=== PATIENT | male | born 1955 | race Caucasian/White ===

== ENCOUNTER 2016-12-07 22:56 | Inpatient (IN) ==
[2016-12-08] MEDS ORDERED: Naloxone 0.4 MG/ML INJ IVP PRN (01:35)
[2016-12-08] MEDS ORDERED: Ondansetron 4 MG/2 ML VIAL IVP PRN (01:35)
--- NOTE | 2016-12-08 01:45 | Internal Med History&Physical ---
Date of Encounter: 12/08/16 Time of Encounter: 01:05 Assessment and Plan (1) Acute pancreatitis Current visit: No Status: Acute 1. npo. 2. IVF hydration, IV pain medications, IV anti-emetics. 3. Will order GB ultrasound and repeat LFT's. 4. Given leukocytosis, will draw blood cultures and start IV antibiotics to cover GI joe. 5. Check lipid profile. 6. Likely due to gallstones. Will likely need surgical consult for cholecystectomy after acute pancreatitis resolves. Qualifiers: Pancreatitis type: biliary Acute pancreatitis complication: no infection or necrosis Qualified Code(s): K85.10 - Biliary acute pancreatitis without necrosis or infection (2) Cholelithiases Current visit: No Status: Acute 1. Will need surgery (cholecystectomy) once pancreatitis resolves. Qualifiers: Cholelithiasis location: gallbladder Cholecystitis acuity: unspecified acuity Biliary obstruction: without biliary obstruction Qualified Code(s): K80.00 - Calculus of gallbladder with acute cholecystitis without obstruction (3) DVT prophylaxis Current visit: Yes Status: Acute 1. Heparin SQ. Internal Medicine - H&P: HPI Chief complaint: pancreatitis Admitted From: Hospital to Hospital Transfer Plans for Post Hospital Care: Home History of present illness: Mr. Bullard is a 61 year old male who presents in transfer from [facility] emergency department. He was diagnosed with pancreatitis there and gallstones. He was therefore transferred to [place] for further evaluation and care. Upon my assessment of the patient, I can obtain no history due to his severe MRDD and noncommunicative state. He appears to be garding his epigastrium somewhat, but I can elicit no information from him whatsoever. I called his snf where he resides and spoke with one of his nurses. He informed me that the patient had been doing well until earlier today when he did not eat his lunch or dinner. The nurse also informed me that he was guarding and rubbing his epigastrium. Because of the symptoms, he was sent to the ER for evaluation where he was diagnosed with pancreatitis. No further history could be obtained about the present illness. I reviewed the ER records from [facility] and the records from his sn[facility] and my phone discussion with the nurse as well. Past Med Surg Social Fam HX - Past Medical History Source: old records reviewed, nursing notes reviewed Medical history: GERD, hypertension, other (severe MRDD) Psychiatric history: anxiety, depression - Past Surgical History Surgical History: no surgical history - Social History Smoking Status: Never smoker Smokeless Tobacco Status: No Alcohol use: none Drug use: none Current living situation: Prison - Family History Mother History Unknown: Yes Father History Unknown: Yes Internal Medicine - H&P: Meds Loratadine [Claritin] 10 mg PO DAILY PRN 12/07/16 [History] Omeprazole 20 mg PO Q48H 12/07/16 [History] Paroxetine HCl [Paxil] 30 mg PO DAILY 12/07/16 [History] Quetiapine Fumarate [Seroquel] 300 mg PO HS 12/07/16 [History] Calcium Carbonate/Vitamin D3 [Oyster Shell 250 mg + Vit D Tb] 1 each PO BID [History] Melatonin 10 mg PO HS 12/08/16 [History] Saline Nasal [place] [[place] Nasal [place]] 2 spray NS DAILY 12/08/16 [History] Allergies No Known Allergies Allergy (Verified 12/07/16 18:37) ROS unobtainable: due to mental status - Constitutional Vitals: Temp Pulse Resp BP Pulse Ox 100 F H 89 18 127/71 92 12/08/16 00:31 12/08/16 00:31 12/08/16 00:31 12/08/16 00:31 12/08/16 00:31 General appearance: Present: A&O X 0, mild distress. Absent: answers questions appropriately Exam: anxious and tearful at times--not communicative - Head Head exam: Present: atraumatic, normal inspection - Expanded Head Exam Head exam expanded: Absent: abrasion, contusion, general tenderness - Eye Eye exam: Present: EOMI, normal appearance, PERRL. Absent: scleral icterus Pupils: Present: normal accommodation - ENT ENT exam: Present: mucous membranes dry, normal exam, normal oropharynx - Neck Neck exam general surgery: Present: supple. Absent: lymphadenopathy, tenderness , thyromegaly - Respiratory Respiratory exam: Present: CTAB. Absent: chest wall tenderness, rales, respiratory distress, rhonchi, wheezes - Cardiovascular Cardiovascular exam: Present: RRR, +S1, +S2. Absent: diastolic murmur, systolic murmur - GI/Abdominal GI/Abdominal exam: Present: guarding (epigastrium), normal bowel sounds, soft, tenderness (epigastrium), no peritoneal signs. Absent: hepatomegaly, rebound, splenomegaly - Extremities Exam Extremities exam: Present: full ROM, warm, radial pulses palpable and symetrical. Absent: calf tenderness, joint swelling, pedal edema - Back Exam Back exam: Present: normal inspection. Absent: CVA tenderness (L), CVA tenderness (R) - Neurological Exam Neurological exam: Present: no focal deficits Additional comments: difficult to assess -- will not cooperate; he moves all four extremities and shows no gross deficits - Psychiatric Psychiatric exam: Present: anxious - Skin Skin exam: Present: dry, warm. Absent: rash Internal Med - H&P Results - Labs Labs: I reviewed his labs from [facility] and include the following: WBC 16.3 Hemoglobin 14.0 Hematocrit 41.1 Platelet count 312 Segmented neutrophils 83% Lymphocytes 6.6% Monocytes 8.3% Sodium 137 Potassium 4.3 Chloride 100 Carbon dioxide 28 BUN 15 Creatinine 0.88 Total bilirubin 3.5 AST 106 ALT 219 Alkaline phosphatase 373 Lipase 1328 - Diagnostic Studies CT scan - abdomen Additional comments: Ct report reviewed: uncomplicated pancreatitis
[2016-12-08] MEDS: Pantoprazole 40 MG VIAL IVP SCH ×3 (02:20→19:56)
[2016-12-08 02:32] LABS: Basophils # 0.1 K/mcL (0.0-0.2); Basophils % 0.3 %; Eosinophils # 0.2 K/mcL (0.0-0.6); Eosinophils % 0.8 %; Hematocrit 41.2 % (37.5-50.1); Hemoglobin 13.8 g/dL (12.9-16.9); Immature Granulocytes % 1.6 % (0-4); Lymphocytes # 1.1 K/mcL (0.6-4.6); Lymphocytes % 5.9 %; Mean Corpuscular HGB Conc 33.5 g/dL (31.6-35.5); Mean Corpuscular Hemoglobin 27.9 pg (28.0-33.3); Mean Corpuscular Volume 83.4 fL (83.0-100.0); Mean Platelet Volume 9.8 fL (9.4-12.4); Monocytes # 1.4 K/mcL (0.0-1.3); Monocytes % 7.4 %; Platelet Count 333 K/mcL (140-400); Red Blood Count 4.94 M/mcL (4.19-5.50); Red Cell Distribution Width 13.5 % (11.5-14.5)
[2016-12-08 02:39] LABS: INR 1.4; Prothrombin Time 15.6 Seconds (9.4-12.1)
[2016-12-08 02:42] LABS: Activated Partial Thrombo Time 36.1 Seconds (26.0-36.0)
[2016-12-08 02:46] LABS: Bilirubin,Direct 1.6 mg/dL (0.0-0.5); Bilirubin,Indirect 0.8 mg/dL (0.0-1.2); Bilirubin,Total 2.4 mg/dL (0.2-1.2)
[2016-12-08 02:48] LABS: Amylase 346 Units/L (25-125); Lipase 782 Units/L (8-78)
[2016-12-08 02:49] LABS: Alanine Aminotransferase 195 Units/L (0-55); Albumin 3.2 g/dL (3.5-5.0); Albumin/Globulin Ratio 0.8 (1.1-2.2); Alkaline Phosphatase 355 Units/L (38-126); Aspartate Amino Transferase 82 Units/L (5-34); BUN/Creatinine Ratio 15 (6-26); Bilirubin,Total 2.5 mg/dL (0.2-1.2); Blood Urea Nitrogen 12 mg/dL (8-26); Carbon Dioxide 24 mEq/L (19-29); Chloride 103 mEq/L (98-109); Chol/HDL Ratio 2.2 (0-4.9); Cholesterol 119 mg/dL (< 200); Glucose 86 mg/dL (70-99); HDL Cholesterol 53 mg/dL (40-59); LDL Cholesterol,Calculated 54 mg/dL (0-99); Magnesium 2.2 mg/dL (1.6-2.6); Osmolality,Calculated 283 (280-300); Potassium 3.6 mEq/L (3.5-4.5); Sodium 137 mEq/L (136-145); Total Protein 7.2 g/dL (6.0-8.3); Triglycerides 61 mg/dL (< 150); eGFR For African Americans > 60 (> 60); eGFR For Non-African Americans > 60 (> 60)
[2016-12-08] MEDS: *HR* Heparin 5,000 UNIT/ML VIAL SQ SCH ×2 (05:30→16:43)
[2016-12-08] MEDS: 0.9 % Sodium Chloride 1,000 ML IVC SCH ×4 (06:24→20:00)
[2016-12-08] MEDS: MetroNIDAZOLE 500 MG/100 ML 500 MG/100 ML BAG IVPB SCH ×2 (09:25→16:44)
[2016-12-08] MEDS: Piperacillin/Tazobactam 3.375 GM in D5% in Water (Mini-Bag+) 100 ML IVPB SCH ×2 (09:25→16:46)
[2016-12-08] MEDS: *HR* Morphine 2 MG/ML SYRINGE IVP PRN ×3 (09:32→19:57)
--- NOTE | 2016-12-08 14:56 | General Surgery Consult Note ---
<Acacia Chavez - Last Filed: 12/08/16 15:38> Date of Encounter: 12/08/16 Time of Encounter: 14:54 Assessment and Plan (1) Gallstone pancreatitis Current Visit: Yes Status: Acute Per reports reviewed and patient family the patient had sudden onset of acute abdominal pain with refusal to eat at his [facility] where he was exhibiting abdominal guarding and tenderness. He was evaluated at [place] ED and diagnosed with pancreatitis and gallstones. He was transferred here for further evaluation and care. Unable to obtain history or review of systems from patient due to MRDD. On physical exam, patient is noncommunicative, active bowel sounds, abdominal tenderness to palpation epigastrium and right upper quadrant with guarding and wincing and withdrawal to pain. Afebrile. Vitals stable. Imaging: -Ultrasound of right upper quadrant on 12/08/16 demonstrates cholelithiasis without evidence of acute cholecystitis. -CT scan of the abdomen and pelvis without IV contrast on 12/07/16 obtained at ED [place] demonstrated acute uncomplicated pancreatitis without free air or fluid collection. Mild reactive duodenitis and large hiatal hernia without bowel obstruction. Multiple gallstones within the gallbladder are noted without wall thickening or cherie-cholecystic inflammatory changes. Labs: WBCs elevated at 19 with left shift; neutrophil count of 16 Elevated direct and total bilirubin; direct 1.6, total 2.4 Elevated LFTs; AST 82, ALT 195, alkaline phosphatase 355 Elevated amylase and lipase; amylase 346, lipase 742 Plan: Nothing by mouth Supportive care. Goal of initial treatment to prevent complications of severe pancreatitis, reduce pancreatic stimuli, correct fluid/electrolyte abnormalities. -IV fluids -IV Pain control -IV Antiemetics Continue to monitor closely over next 48 to 72 hours. -I/O's -Vitals -Electrolytes including Calcium/iCa -serum glucose Risks, benefits, alternatives, expected outcomes will be reviewed with the patient and caregiver for agreement to proceed to the operating room with Dr. Rae for Interval laproscopic cholecystectomy in the next 48 to 72 hours to allow for resolution of acute pancreatitis prior to procedure. History of Present Illness Consult date: 12/08/16 Reason for consult: gallstones Requesting physician: Daniel Winkler History of present illness: Mr. Bullard is a 61-year-old male with a past medical history of MRDD currently living in a penitentiary who was transferred from [facility] emergency department, where he was diagnosed with acute pancreatitis and cholelithiasis to [facility] for further evaluation and care. Per records reviewed, patient was sent to the ER for evaluation as he was refusing to eat his lunch or dinner and was reportedly guarding his epigastric region. CT scan of the abdomen and pelvis without IV contrast demonstrated acute uncomplicated pancreatitis without free air or fluid collection. Mild reactive duodenitis and large hiatal hernia without bowel obstruction. Multiple gallstones within the gallbladder are noted without wall thickening or cherie- cholecystic inflammatory changes. Laboratory results reveal leukocytosis with white cell count of 19 and a left shift with neutrophil count of 16, elevated: LFTs, alkaline phosphatase, direct and total bilirubin, as well as elevated amylase and lipase. Patient is uncommunicative on exam, however, his brother related that the patients step father is the legal caregiver as his mother had a stroke and his biological father . Patient has 3 brothers. Past Med Surg Social Fam HX - Past Medical History Medical history: GERD, hypertension, other (severe MRDD) Psychiatric history: anxiety, depression - Past Surgical History Surgical History: no surgical history - Social History Smoking Status: Never smoker Smokeless Tobacco Status: No Alcohol use: none Drug use: none - Family History Mother History Unknown: Yes Father History Unknown: Yes Medications and Allergies Loratadine [Claritin] 10 mg PO DAILY PRN 12/07/16 [History] Omeprazole 20 mg PO Q48H 12/07/16 [History] Paroxetine HCl [Paxil] 30 mg PO DAILY 12/07/16 [History] Quetiapine Fumarate [Seroquel] 300 mg PO HS 12/07/16 [History] Acetaminophen [Tylenol] 650 mg PO Q4H PRN 12/08/16 [History] Calcium Carbonate/Vitamin D3 [Oyster Shell 250 mg + Vit D Tb] 1 each PO BID [History] Fluticasone Propionate Nasal [Flonase] 2 spr NS DAILY PRN 12/08/16 [History] Ibuprofen [Motrin] 400 mg PO Q4HR PRN 12/08/16 [History] Loperamide HCl [Anti-Diarrheal] 2 mg PO Q4H PRN MDD 4 TABLETS 12/08/16 [History] MOM Conc [Milk of Magnesia Conc] 30 ml PO AD PRN 12/08/16 [History] Melatonin 10 mg PO HS 12/08/16 [History] Saline Nasal [place] [[place] Nasal [place]] 2 spray NS DAILY 12/08/16 [History] Allergies No Known Allergies Allergy (Verified 12/08/16 13:15) Review of Systems All systems PM: A 10-system review of systems was performed and is negative for pertinent findings except as documented above in the HPI. General Surgery Exam Initial Vital Signs Temp Pulse Resp BP Pulse Ox 100 F H 89 18 127/71 92 12/08/16 00:31 12/08/16 00:31 12/08/16 00:31 12/08/16 00:31 12/08/16 00:31 - General physical appearance moderate distress, obese, other (Unable to answer questions. ). negative: jaundice - Eyes PERRL, normal ocular movement. negative: icteric - ENT dry mucosa - Neck trachea midline, no venous distension - Respiratory normal expansion, normal respiratory effort, clear to auscultation - Cardiovascular Cardiovascular exam: Present: RRR, no murmurs/rubs/gallops - Abdomen Abdomen general surgery: Present: bowel sounds present, soft, guarding. Absent : distended, rebound, rigid Abdominal Tenderness: Present: epigastic, RUQ - Integumentary Integumentary general surgery: Present: warm and dry - Neurologic Present: other (A&O x 0) - Psychiatric Psychiatric general surgery: Present: tearful. Absent: oriented to person, oriented to place, oriented to time, speech is normal Exam Initial Vital Signs Temp Pulse Resp BP Pulse Ox 100 F H 89 18 127/71 92 12/08/16 00:31 12/08/16 00:31 12/08/16 00:31 12/08/16 00:31 12/08/16 00:31 Results - Labs 12/08/16 02:02 12/08/16 02:02 Abnormal lab results WBC 19.0 K/mcL (4.3-11.1) H 12/08/16 02:02 MCH 27.9 pg (28.0-33.3) L 12/08/16 02:02 Neutrophils # 16.0 K/mcL (1.6-8.9) H 12/08/16 02:02 Monocytes # 1.4 K/mcL (0.0-1.3) H 12/08/16 02:02 PT 15.6 Seconds (9.4-12.1) H 12/08/16 02:02 APTT 36.1 Seconds (26.0-36.0) H 12/08/16 02:02 Total Bilirubin 2.4 mg/dL (0.2-1.2) H 12/08/16 02:13 Direct Bilirubin 1.6 mg/dL (0.0-0.5) H 12/08/16 02:13 AST 82 Units/L (5-34) H 12/08/16 02:02 ALT 195 Units/L (0-55) H 12/08/16 02:02 Alkaline Phosphatase 355 Units/L (38-126) H 12/08/16 02:02 Albumin 3.2 g/dL (3.5-5.0) L 12/08/16 02:02 Globulin 4.0 g/dL (2.4-3.5) H 12/08/16 02:02 Albumin/Globulin Ratio 0.8 (1.1-2.2) L 12/08/16 02:02 Amylase 346 Units/L (25-125) H 12/08/16 02:02 Lipase 782 Units/L (8-78) H 12/08/16 02:02 Diabetes panel 12/08/16 Range/Units 02:02 Sodium 137 (136-145) mEq/L Potassium 3.6 (3.5-4.5) mEq/L Chloride 103 (98-109) mEq/L Carbon Dioxide 24 (19-29) mEq/L BUN 12 (8-26) mg/dL Creatinine 0.80 (0.72-1.25) mg/dL Glucose 86 (70-99) mg/dL Calcium 9.0 (8.6-10.8) mg/dL AST 82 H (5-34) Units/L ALT 195 H (0-55) Units/L Alkaline Phosphatase 355 H (38-126) Units/L Albumin 3.2 L (3.5-5.0) g/dL Triglycerides 61 (< 150) mg/dL HDL Cholesterol 53 (40-59) mg/dL Calcium panel 12/08/16 Range/Units 02:02 Calcium 9.0 (8.6-10.8) mg/dL Albumin 3.2 L (3.5-5.0) g/dL Pituitary panel 12/08/16 Range/Units 02:02 Sodium 137 (136-145) mEq/L Potassium 3.6 (3.5-4.5) mEq/L Chloride 103 (98-109) mEq/L Carbon Dioxide 24 (19-29) mEq/L BUN 12 (8-26) mg/dL Creatinine 0.80 (0.72-1.25) mg/dL Glucose 86 (70-99) mg/dL Calcium 9.0 (8.6-10.8) mg/dL Adrenal panel 12/08/16 12/08/16 Range/Units 02:02 02:13 Sodium 137 (136-145) mEq/L Potassium 3.6 (3.5-4.5) mEq/L Chloride 103 (98-109) mEq/L Carbon Dioxide 24 (19-29) mEq/L BUN 12 (8-26) mg/dL Creatinine 0.80 (0.72-1.25) mg/dL Glucose 86 (70-99) mg/dL Calcium 9.0 (8.6-10.8) mg/dL Total Bilirubin 2.5 H 2.4 H (0.2-1.2) mg/dL AST 82 H (5-34) Units/L ALT 195 H (0-55) Units/L Alkaline Phosphatase 355 H (38-126) Units/L Albumin 3.2 L (3.5-5.0) g/dL All other labs normal. Consult Discharge Plan - Plan Referrals: Yamilet Cramer MD [Primary Care Provider] - <Fuad Rae - Last Filed: 12/08/16 17:31> Date of Encounter: 12/08/16 Review of Systems All systems PM: A 10-system review of systems was performed and is negative for pertinent findings except as documented above in the HPI. General Surgery Exam Initial Vital Signs Temp Pulse Resp BP Pulse Ox 100 F H 89 18 127/71 92 12/08/16 00:31 12/08/16 00:31 12/08/16 00:31 12/08/16 00:31 12/08/16 00:31 Exam Initial Vital Signs Temp Pulse Resp BP Pulse Ox 100 F H 89 18 127/71 92 12/08/16 00:31 12/08/16 00:31 12/08/16 00:31 12/08/16 00:31 12/08/16 00:31 Results - Labs 12/08/16 02:02 12/08/16 02:02 Abnormal lab results WBC 19.0 K/mcL (4.3-11.1) H 12/08/16 02:02 MCH 27.9 pg (28.0-33.3) L 12/08/16 02:02 Neutrophils # 16.0 K/mcL (1.6-8.9) H 12/08/16 02:02 Monocytes # 1.4 K/mcL (0.0-1.3) H 12/08/16 02:02 PT 15.6 Seconds (9.4-12.1) H 12/08/16 02:02 APTT 36.1 Seconds (26.0-36.0) H 12/08/16 02:02 POC Glucose 95 (58-89) H 12/08/16 17:14 Total Bilirubin 2.4 mg/dL (0.2-1.2) H 12/08/16 02:13 Direct Bilirubin 1.6 mg/dL (0.0-0.5) H 12/08/16 02:13 AST 82 Units/L (5-34) H 12/08/16 02:02 ALT 195 Units/L (0-55) H 12/08/16 02:02 Alkaline Phosphatase 355 Units/L (38-126) H 12/08/16 02:02 Albumin 3.2 g/dL (3.5-5.0) L 12/08/16 02:02 Globulin 4.0 g/dL (2.4-3.5) H 12/08/16 02:02 Albumin/Globulin Ratio 0.8 (1.1-2.2) L 12/08/16 02:02 Amylase 346 Units/L (25-125) H 12/08/16 02:02 Lipase 782 Units/L (8-78) H 12/08/16 02:02 Diabetes panel 12/08/16 Range/Units 02:02 Sodium 137 (136-145) mEq/L Potassium 3.6 (3.5-4.5) mEq/L Chloride 103 (98-109) mEq/L Carbon Dioxide 24 (19-29) mEq/L BUN 12 (8-26) mg/dL Creatinine 0.80 (0.72-1.25) mg/dL Glucose 86 (70-99) mg/dL Calcium 9.0 (8.6-10.8) mg/dL AST 82 H (5-34) Units/L ALT 195 H (0-55) Units/L Alkaline Phosphatase 355 H (38-126) Units/L Albumin 3.2 L (3.5-5.0) g/dL Triglycerides 61 (< 150) mg/dL HDL Cholesterol 53 (40-59) mg/dL Calcium panel 12/08/16 Range/Units 02:02 Calcium 9.0 (8.6-10.8) mg/dL Albumin 3.2 L (3.5-5.0) g/dL Pituitary panel 12/08/16 Range/Units 02:02 Sodium 137 (136-145) mEq/L Potassium 3.6 (3.5-4.5) mEq/L Chloride 103 (98-109) mEq/L Carbon Dioxide 24 (19-29) mEq/L BUN 12 (8-26) mg/dL Creatinine 0.80 (0.72-1.25) mg/dL Glucose 86 (70-99) mg/dL Calcium 9.0 (8.6-10.8) mg/dL Adrenal panel 12/08/16 12/08/16 Range/Units 02:02 02:13 Sodium 137 (136-145) mEq/L Potassium 3.6 (3.5-4.5) mEq/L Chloride 103 (98-109) mEq/L Carbon Dioxide 24 (19-29) mEq/L BUN 12 (8-26) mg/dL Creatinine 0.80 (0.72-1.25) mg/dL Glucose 86 (70-99) mg/dL Calcium 9.0 (8.6-10.8) mg/dL Total Bilirubin 2.5 H 2.4 H (0.2-1.2) mg/dL AST 82 H (5-34) Units/L ALT 195 H (0-55) Units/L Alkaline Phosphatase 355 H (38-126) Units/L Albumin 3.2 L (3.5-5.0) g/dL All other labs normal. - Attending Attestation I examined this patient and my medical decision-making was reviewed with the FLIGHT FOLLOWER/PA/Advanced Practice Nurse/Resident Physician. I agree with the documented findings, disposition and treatment plan as described except to the extent set forth below. The patient is seen and evaluated. CAT scan reviewed. We will proceed with convalescent laparoscopic cholecystectomy when clinical evidence of pancreatitis has improved. Fuad Rae MD FACS
[2016-12-09] MEDS: 0.9 % Sodium Chloride 1,000 ML IVC SCH ×2 (04:09→08:55)
[2016-12-09] MEDS: *HR* Morphine 2 MG/ML SYRINGE IVP PRN ×2 (04:22→08:56)
[2016-12-09] MEDS: MetroNIDAZOLE 500 MG/100 ML 500 MG/100 ML BAG IVPB SCH ×2 (04:22→09:05)
[2016-12-09] MEDS: Piperacillin/Tazobactam 3.375 GM in D5% in Water (Mini-Bag+) 100 ML IVPB SCH ×3 (04:23→16:50)
[2016-12-09 06:06] LABS: Hematocrit 38.4 % (37.5-50.1); Hemoglobin 12.6 g/dL (12.9-16.9); Mean Corpuscular HGB Conc 32.8 g/dL (31.6-35.5); Mean Corpuscular Hemoglobin 27.1 pg (28.0-33.3); Mean Corpuscular Volume 82.6 fL (83.0-100.0); Mean Platelet Volume 9.6 fL (9.4-12.4); Platelet Count 310 K/mcL (140-400); Red Blood Count 4.65 M/mcL (4.19-5.50); Red Cell Distribution Width 13.2 % (11.5-14.5)
[2016-12-09 06:21] LABS: Alanine Aminotransferase 93 Units/L (0-55); Albumin/Globulin Ratio 0.7 (1.1-2.2); Alkaline Phosphatase 262 Units/L (38-126); Aspartate Amino Transferase 27 Units/L (5-34); BUN/Creatinine Ratio 16 (6-26); Bilirubin,Total 1.6 mg/dL (0.2-1.2); Blood Urea Nitrogen 11 mg/dL (8-26); Calcium 8.2 mg/dL (8.6-10.8); Carbon Dioxide 21 mEq/L (19-29); Chloride 105 mEq/L (98-109); Globulin 3.6 g/dL (2.4-3.5); Glucose 101 mg/dL (70-99); Osmolality,Calculated 280 (280-300); Potassium 3.9 mEq/L (3.5-4.5); Sodium 135 mEq/L (136-145); Total Protein 6.1 g/dL (6.0-8.3); eGFR For African Americans > 60 (> 60); eGFR For Non-African Americans > 60 (> 60)
[2016-12-09 06:22] LABS: Albumin 2.5 g/dL (3.5-5.0)
--- NOTE | 2016-12-09 08:04 | General Surgery Progress Note ---
Date of Encounter: 12/10/16 Time of Encounter: 08:02 - Assessment and Plan (1) Gallstone pancreatitis Current Visit: Yes Status: Acute Abdominal CT reveals acute pancreatitis with multiple gallstones present within the gallbladder. Patient has MRDD, is noncommunicative. His bowel sounds are active with no obvious response to pain with abdominal palpation. WBC 22.4 amylase 45, lipase 127 (improved) Patient remains afebrile with stable vital signs. Current plan is for Cholecystectomy tomorrow Plan: -May advance diet to clear liquids. -NPO at midnight. -Continue IVF, pain control, antiemetics -I/Os Subjective Narrative: The patient was seen and examined. He is unable to verbalize any complaints at this time secondary to MRDD. Patient does not elicit in obvious pain response to abdominal palpation. Objective Vital Signs - Last 8 Hours Temp Pulse Resp BP Pulse Ox 12/09/16 07:13 98.6 F 70 17 118/97 95 12/09/16 03:16 98.9 F 79 18 133/83 97 Intake and Output 12/08/16 12/09/16 12/09/16 23:59 07:59 15:59 Intake Total 1100 / 1100 1100 / 1100 Output Total 375 / 375 400 / 400 Balance 725 / 725 700 / 700 Intake: IV Fluids 1100 / 1100 1100 / 1100 0.9 % Sodium Chloride 1, 1000 / 1000 1000 / 1000 000 ML @ 200 mls/hr IVC . Q5H [facility] Rx#:[id number] Flagyl Premix 500 MG/100 100 / 100 ML 500 mg In 100 ml @ 100 mls/hr IVPB Q8HR [facility] Rx# :[id number] Zosyn 3.375 GM In 100 / 100 Dextrose 5% (Minibag+) 100 ML 100 ML @ 25 mls/hr IVPB Q8HR [facility] Rx#: [id number] Oral 0 / 0 0 / 0 Output: Urine 375 / 375 400 / 400 Other: Weight 87 kg Blood Glucose* 95 96 Patient Weight 12/09/16 23:59 Weight 87 kg - General physical appearance well nourished, no distress, no pain, chronically ill - ENT atraumatic, normocephalic - Respiratory normal expansion, normal respiratory effort, clear to auscultation - Cardiovascular Cardiovascular exam: Present: RRR, no murmurs/rubs/gallops - Abdomen Abdomen: Present: bowel sounds present, soft, non tender - Integumentary no rash, no abnormal pigmentation - Neurologic other - Psychiatric other (A&Ox0, non-communicative making vocalizations and gesturing at objects in the room) - Labs 12/10/16 06:45 12/10/16 06:45 Diabetes panel 12/09/16 Range/Units 05:22 Sodium 135 L (136-145) mEq/L Potassium 3.9 (3.5-4.5) mEq/L Chloride 105 (98-109) mEq/L Carbon Dioxide 21 (19-29) mEq/L BUN 11 (8-26) mg/dL Creatinine 0.70 L (0.72-1.25) mg/dL Glucose 101 H (70-99) mg/dL Calcium 8.2 L (8.6-10.8) mg/dL AST 27 (5-34) Units/L ALT 93 H (0-55) Units/L Alkaline Phosphatase 262 H (38-126) Units/L Albumin 2.5 L D (3.5-5.0) g/dL Calcium panel 12/09/16 Range/Units 05:22 Calcium 8.2 L (8.6-10.8) mg/dL Albumin 2.5 L D (3.5-5.0) g/dL Pituitary panel 12/09/16 Range/Units 05:22 Sodium 135 L (136-145) mEq/L Potassium 3.9 (3.5-4.5) mEq/L Chloride 105 (98-109) mEq/L Carbon Dioxide 21 (19-29) mEq/L BUN 11 (8-26) mg/dL Creatinine 0.70 L (0.72-1.25) mg/dL Glucose 101 H (70-99) mg/dL Calcium 8.2 L (8.6-10.8) mg/dL Adrenal panel 12/09/16 Range/Units 05:22 Sodium 135 L (136-145) mEq/L Potassium 3.9 (3.5-4.5) mEq/L Chloride 105 (98-109) mEq/L Carbon Dioxide 21 (19-29) mEq/L BUN 11 (8-26) mg/dL Creatinine 0.70 L (0.72-1.25) mg/dL Glucose 101 H (70-99) mg/dL Calcium 8.2 L (8.6-10.8) mg/dL Total Bilirubin 1.6 H (0.2-1.2) mg/dL AST 27 (5-34) Units/L ALT 93 H (0-55) Units/L Alkaline Phosphatase 262 H (38-126) Units/L Albumin 2.5 L D (3.5-5.0) g/dL Consult Discharge Plan - Plan Referrals: Yamilet Cramer MD [Primary Care Provider] - - Attending Attestation I examined this patient and my medical decision-making was reviewed with the LOCATION DIRECTOR/PA/Advanced Practice Nurse/Resident Physician. I agree with the documented findings, disposition and treatment plan as described except to the extent set forth below. The patient is seen and evaluated. We will plan laparoscopic cholecystectomy and intraoperative cholangiogram for treatment of gallstone pancreatitis and choledocholithiasis Fuad Rae MD FACS
[2016-12-09 08:24] LABS: Amylase 45 Units/L (25-125); Lipase 127 Units/L (8-78)
[2016-12-09] MEDS: *HR* Heparin 5,000 UNIT/ML VIAL SQ SCH ×2 (08:47→16:50)
[2016-12-09] MEDS: Pantoprazole 40 MG VIAL IVP SCH ×2 (08:56→21:47)
[2016-12-09] MEDS ORDERED: 0.9 % Sodium Chloride 1,000 ML IVC SCH (11:24)
--- NOTE | 2016-12-09 15:26 | Internal Med Progress Note ---
Date of Encounter: 12/09/16 Time of Encounter: 10:15 - Assessment and plan (1) Gallstone pancreatitis Current Visit: Yes Status: Acute Assessment and plan: Clinically improving. Continue IV hydration. Tolerating clear liquid diet. Surgery consulted. Plan for surgery once medically stable. (2) Cholelithiases Current Visit: Yes Status: Acute Assessment and plan: Plan for laparoscopic cholecystectomy once medically stable. Continue Zosyn. Qualifiers: Cholelithiasis location: gallbladder Cholecystitis acuity: unspecified acuity Biliary obstruction: without biliary obstruction Qualified Code(s): K80.00 - Calculus of gallbladder with acute cholecystitis without obstruction (3) DVT prophylaxis Current Visit: Yes Status: Acute Assessment and plan: On heparin subcutaneous - Subjective Interval history: Difficult to communicate with patient. Has severe underlying MRDD. Does not indicate any pain. Tolerated clear liquid breakfast earlier this morning. - Constitutional Vitals: Temp Pulse Resp BP Pulse Ox 97.5 F L 71 17 112/84 96 12/09/16 14:52 12/09/16 14:52 12/09/16 14:52 12/09/16 14:52 12/09/16 14:52 General appearance: Present: A&O X 0, mild distress. Absent: answers questions appropriately - Respiratory Respiratory exam: Present: CTAB. Absent: accessory muscle use, rales, rhonchi, wheezes - Cardiovascular Cardiovascular exam: Present: RRR, +S1, +S2. Absent: diastolic murmur, gallop, rubs, systolic murmur - GI/Abdominal GI/Abdominal exam: Present: normal bowel sounds, soft, no peritoneal signs. Absent: distended, tenderness Internal Medicine: Result - Labs CBC & Chem 7: 12/09/16 05:22 12/09/16 05:22 Labs: Short CBC 12/09/16 Range/Units 05:22 WBC 22.4 H (4.3-11.1) K/mcL Hgb 12.6 L (12.9-16.9) g/dL Hct 38.4 (37.5-50.1) % Plt Count 310 (140-400) K/mcL BMP 12/09/16 05:22 Sodium 135 L Potassium 3.9 Chloride 105 Carbon Dioxide 21 BUN 11 Creatinine 0.70 L Glucose 101 H Calcium 8.2 L Liver Function 12/09/16 Range/Units 05:22 Total Bilirubin 1.6 H (0.2-1.2) mg/dL AST 27 (5-34) Units/L ALT 93 H (0-55) Units/L Alkaline Phosphatase 262 H (38-126) Units/L Albumin 2.5 L D (3.5-5.0) g/dL - ABG Interpretation ABG results: PT/INR, D-dimer PT 15.6 Seconds (9.4-12.1) H 12/08/16 02:02 Consult Discharge Plan - Plan Referrals: Yamilet Cramer MD [Primary Care Provider] - - Attending Attestation This document has been at least partially created by [employer] recognition technology by Dr. Joiner. Errors in grammar, wording or other phrases may exist. If errors are found after the documentation is signed, they will be addressed individually in the addendum section of this document when appropriate.
--- NOTE | 2016-12-09 16:17 | Event Note ---
<Lorena Shelln - Last Filed: 12/09/16 16:15> Date of Encounter: 12/09/16 Time of Encounter: 16:15 I spoke with the patient's siblings Lorenza BullardPhyllis and Mirza Bullard over the telephone. I discussed the procedure will be performed with Dr. Rae: Laparoscopic cholecystectomy with possible cholangiogram. I discussed the risks and complications of the procedure with them. I obtained verbal consent for the procedure from both siblings. Consent was filled out and signed by myself, and witnessed by the patient's nurse Emily Reyes and placed in the patient's chart. <Fuad Rae - Last Filed: 12/10/16 07:57> Date of Encounter: 12/10/16 Consent signed for surgery Fuad Rae MD FACS
--- NOTE | 2016-12-09 21:08 | Anesthesia Evaluation PreOp ---
Date of Encounter: 12/09/16 Time of Encounter: 21:05 - Past History Planned Operation: Lap veronica with possible gram Cardiac History: HTN ROLL SKINNER History: Other (MRDD (unable to consent)) Other Medical History: GERD, Other (large hiatal hernia per CT, acute gallstone pancreatitis) Alcohol Use: none Drug use: none Medications and Allergies Loratadine [Claritin] 10 mg PO DAILY PRN 12/07/16 [History] Omeprazole 20 mg PO Q48H 12/07/16 [History] Paroxetine HCl [Paxil] 30 mg PO DAILY 12/07/16 [History] Quetiapine Fumarate [Seroquel] 300 mg PO HS 12/07/16 [History] Acetaminophen [Tylenol] 650 mg PO Q4H PRN 12/08/16 [History] Calcium Carbonate/Vitamin D3 [Oyster Shell 250 mg + Vit D Tb] 1 each PO BID [History] Fluticasone Propionate Nasal [Flonase] 2 spr NS DAILY PRN 12/08/16 [History] Ibuprofen [Motrin] 400 mg PO Q4HR PRN 12/08/16 [History] Loperamide HCl [Anti-Diarrheal] 2 mg PO Q4H PRN MDD 4 TABLETS 12/08/16 [History] MOM Conc [Milk of Magnesia Conc] 30 ml PO AD PRN 12/08/16 [History] Melatonin 10 mg PO HS 12/08/16 [History] Saline Nasal [place] [[place] Nasal Dexter] 2 spray NS DAILY 12/08/16 [History] Allergies No Known Allergies Allergy (Verified 12/08/16 13:15) - Meds/Allergy Pre-op Review Medications Reviewed: Yes Allergies Reviewed: Yes Beta Blockers on Current Med List: No Anesthesia Results - Labs 12/09/16 05:22 12/09/16 05:22 - Imaging EKG: report reviewed (sr) Anesthesia Exam O2 Sat Weight 87 kg O2 Sat by Pulse Oximetry 95 O2 Sat by Pulse Oximetry 96 O2 Sat by Pulse Oximetry 98 O2 Sat by Pulse Oximetry 95 O2 Sat by Pulse Oximetry 97 O2 Sat by Pulse Oximetry 95 Vital Signs Temp Pulse Resp BP Pulse Ox 100 F H 89 18 127/71 92 12/08/16 00:31 12/08/16 00:31 12/08/16 00:31 12/08/16 00:31 12/08/16 00:31 Height: 1.73 Weight: 87 NPO (# of Hours): >8 Anesthesia Assess/Plan ASA Score: 3 Modified Donnell Scale for Level of Consciousness: Anixous, agitated or restless Anesthetic Plan: General Monitoring Plan: Standard Monitors Recovery Plan: PACU
[2016-12-10] MEDS: Piperacillin/Tazobactam 3.375 GM in D5% in Water (Mini-Bag+) 100 ML IVPB SCH ×3 (00:45→23:46)
[2016-12-10] MEDS: *HR* Heparin 5,000 UNIT/ML VIAL SQ SCH ×2 (06:49→21:55)
[2016-12-10 07:03] LABS: Basophils # 0.1 K/mcL (0.0-0.2); Basophils % 0.4 %; Eosinophils # 0.6 K/mcL (0.0-0.6); Eosinophils % 3.3 %; Hematocrit 36.7 % (37.5-50.1); Hemoglobin 12.2 g/dL (12.9-16.9); Immature Platelets 3.9 % (1.1-6.1); Lymphocytes # 1.6 K/mcL (0.6-4.6); Lymphocytes % 9.5 %; Mean Corpuscular HGB Conc 33.2 g/dL (31.6-35.5); Mean Corpuscular Hemoglobin 27.1 pg (28.0-33.3); Mean Corpuscular Volume 81.4 fL (83.0-100.0); Mean Platelet Volume 9.5 fL (9.4-12.4); Monocytes # 1.3 K/mcL (0.0-1.3); Neutrophils # 13.1 K/mcL (1.6-8.9); Platelet Count 350 K/mcL (140-400); Red Blood Count 4.51 M/mcL (4.19-5.50); Red Cell Distribution Width 13.2 % (11.5-14.5); Segmented Neutrophils % 77.8 %
[2016-12-10 07:18] LABS: Alanine Aminotransferase 65 Units/L (0-55); Albumin 2.6 g/dL (3.5-5.0); Albumin/Globulin Ratio 0.7 (1.1-2.2); Alkaline Phosphatase 216 Units/L (38-126); Amylase 33 Units/L (25-125); Aspartate Amino Transferase 18 Units/L (5-34); BUN/Creatinine Ratio 13 (6-26); Bilirubin,Total 1.2 mg/dL (0.2-1.2); Blood Urea Nitrogen 9 mg/dL (8-26); Calcium 8.4 mg/dL (8.6-10.8); Carbon Dioxide 21 mEq/L (19-29); Chloride 106 mEq/L (98-109); Globulin 3.7 g/dL (2.4-3.5); Glucose 105 mg/dL (70-99); INR 1.3; Lipase 88 Units/L (8-78); Osmolality,Calculated 285 (280-300); Potassium 3.2 mEq/L (3.5-4.5); Prothrombin Time 14.1 Seconds (9.4-12.1); Sodium 138 mEq/L (136-145); Total Protein 6.3 g/dL (6.0-8.3); eGFR For African Americans > 60 (> 60); eGFR For Non-African Americans > 60 (> 60)
[2016-12-10 07:20] LABS: Activated Partial Thrombo Time 32.2 Seconds (26.0-36.0)
--- NOTE | 2016-12-10 09:15 | Internal Med Progress Note ---
Date of Encounter: 12/10/16 Time of Encounter: 09:14 - Assessment and plan (1) Cholelithiases Current Visit: Yes Status: Acute Assessment and plan: Plan for laparoscopic cholecystectomy today Qualifiers: Cholelithiasis location: gallbladder Cholecystitis acuity: unspecified acuity Biliary obstruction: without biliary obstruction Qualified Code(s): K80.00 - Calculus of gallbladder with acute cholecystitis without obstruction (2) DVT prophylaxis Current Visit: Yes Status: Acute Assessment and plan: On heparin subcutaneous (3) Gallstone pancreatitis Current Visit: Yes Status: Acute Assessment and plan: Clinically improving. Continue IV hydration and Zosyn For surgery today leukocytosis improving Preliminary blood culture negative - Subjective Interval history: Seen and evaluated at bedside 61 M being managed for gall stone pancreatitis For laparoscopic cholecystectomy today Day 3 of Zosyn - Constitutional Vitals: Temp Pulse Resp BP Pulse Ox 99.1 F 66 18 124/77 94 12/10/16 07:30 12/10/16 07:30 12/10/16 07:30 12/10/16 07:30 12/10/16 07:30 VSS. Makes incomprehensible sounds Calm, not in any form of distress Alert, unable to assess orientation due to severe underlying MRDD Moves all limbs spontaneously, speech is incomprehensible, No facial paralysis, follows commands Chest clear to auscultation bilaterally Heart sounds S1, S2 only, no m/g/r Abdomen: Soft, not tender, moves with respiration, BS present in all quadrants Extremities well perfused, no pedal edema General appearance: Present: A&O X 0. Absent: answers questions appropriately Internal Medicine: Result - Labs CBC & Chem 7: 12/10/16 06:45 12/10/16 06:45 Labs: Short CBC 12/10/16 Range/Units 06:45 WBC 16.8 H (4.3-11.1) K/mcL Hgb 12.2 L (12.9-16.9) g/dL Hct 36.7 L (37.5-50.1) % Plt Count 350 (140-400) K/mcL Neutrophils # 13.1 H (1.6-8.9) K/mcL BMP 12/10/16 06:45 Sodium 138 Potassium 3.2 L Chloride 106 Carbon Dioxide 21 BUN 9 Creatinine 0.69 L Glucose 105 H Calcium 8.4 L Liver Function 12/10/16 Range/Units 06:45 Total Bilirubin 1.2 (0.2-1.2) mg/dL AST 18 (5-34) Units/L ALT 65 H (0-55) Units/L Alkaline Phosphatase 216 H (38-126) Units/L Albumin 2.6 L (3.5-5.0) g/dL - ABG Interpretation ABG results: PT/INR, D-dimer PT 14.1 Seconds (9.4-12.1) H 12/10/16 06:45 Consult Discharge Plan - Plan Referrals: Yamilet Cramer MD [Primary Care Provider] -
[2016-12-10] MEDS ORDERED: Potassium Chloride Elixir 20 MEQ/15 ML UDC PO ONE (11:21)
[2016-12-10] MEDS: Pantoprazole 40 MG VIAL IVP SCH ×2 (12:53→20:16)
[2016-12-10] MEDS ORDERED: Neostigmine Methylsulfate 3 MG/3 ML SYRINGE ONE (16:09)
[2016-12-10] MEDS ORDERED: Lidocaine -MPF 4% 5 ML AMPUL ONE (16:09)
[2016-12-10] MEDS ORDERED: *HR* Rocuronium Bromide 50 MG/5 ML VIAL ONE (16:09)
[2016-12-10] MEDS ORDERED: *HR* Propofol 200 MG/20 ML VIAL IVP ONE ×2 (16:09→16:18)
[2016-12-10] MEDS ORDERED: Dexamethasone 4 MG/ML VIAL ONE (16:09)
[2016-12-10] MEDS ORDERED: Lidocaine -MPF 2% 2 ML VIAL ONE (16:09)
[2016-12-10] MEDS ORDERED: Ondansetron 4 MG/2 ML VIAL ONE (16:09)
[2016-12-10] MEDS ORDERED: *HR* FentaNYL (PF) 100 MCG/2 ML VIAL ONE (16:09)
[2016-12-10] MEDS ORDERED: *HR* Succinylcholine 200 MG/10 ML VIAL IVP ONE (16:09)
[2016-12-10] MEDS ORDERED: Ketorolac 30 MG/ML VIAL ONE (16:15)
[2016-12-10] MEDS ORDERED: *HR* Promethazine 25 MG/ML VIAL IVP PRN ×2 (16:17→19:08)
[2016-12-10] MEDS ORDERED: *HR* Labetalol 100 MG/20 ML MDV IVP PRN ×2 (16:17→19:08)
[2016-12-10] MEDS ORDERED: CefOXitin 2,000 MG VIAL IVPB ONE (16:31)
--- NOTE | 2016-12-10 17:27 | Operative Note ---
Date of procedure: 12/10/16 Pre-op diagnosis: cholelithiasis, gallstone pancreatitis Procedure: Laparoscopic cholecystectomy, cholangiogram Anesthesia: GIOVANNI Surgeon: Fuad Rae Estimated blood loss (cc): 20 Specimen: Gallbladder and contents Condition: stable Disposition: PACU Procedure in Detail: Laparoscopic cholecystectomy and intraoperative cholangiogram Operative procedure after informed consent and appropriate patient identification timeout the patient's take major operating suite and placed supine position given adequate general endotracheal anesthesia the abdomen is prepped and draped in sterile fashion utilizing ChloraPrep standard draping techniques timeout was taken patient is identified. I made a vertical midline incision below the umbilicus dissected down to level of fascia there are 2 traction stitches placed in the abdominal cavity was entered visually. A Schneider trocar was placed in the abdomen and the abdomen was insufflated to 15 mmHg pressure CO2 the gallbladder was visualized. A placement 11 port in the subxiphoid area and 2 5 mm ports in the subcostal area. The gallbladder was grasped and elevated. A variety of blunt and sharp dissection techniques were used to isolate the cystic duct and cystic artery. The cystic artery was controlled with 2 surgical clips proximally and one distally and it was divided I placed a surgical clip on the neck the gallbladder and obtained an intraoperative cholangiogram using 10 mL of Isovue. Intraoperative cholangiogram demonstrated multiple common bile duct stones with free flow of bile into the duodenum. The cholangiocatheter was removed and the cystic duct was controlled with 2 surgical clips proximally and was divided the gallbladder was removed from the gallbladder fossae using electrocautery. The gallbladder was removed through the #11 port site. I replaced the #11 port and irrigated with copious amounts of antibiotic containing solution. There is no evidence of bleeding or bile leak. All trochars were removed. Fascia was closed with 0 Vicryl at the umbilicus and 0 Nurolon in the subxiphoid area skin with 2-0 and 4-0 Vicryl he tolerated the procedure well and was transferred to recovery in stable condition
[2016-12-10] MEDS: *HR* HYDROmorphone (PF) 1 MG/ML SYRINGE IVP PRN ×2 (17:39→17:54)
--- NOTE | 2016-12-10 18:24 | Anesthesia Evaluation Post Op ---
Date of Encounter: 12/10/16 Time of Encounter: 18:23 - Vital Signs Vital Signs: Last Vital Signs Temp 97.0 F L 12/10/16 18:10 Pulse 76 12/10/16 18:20 Resp 16 12/10/16 18:20 BP 122/80 12/10/16 18:20 Pulse Ox 93 12/10/16 18:20 - Lungs Lungs: Clear Ascult./Percussion - Airway Airway: Non-obstructed - Cardiovascular Regular Rate - Mental Status Mental Status: Alert & Oriented, Answers Appropriately - Pain Pain Scale: 2 - Nausea Vomiting Nausea Vomiting: Not Present - Hydration Hydration: NPO - Discharge PostOp Status: Transfer Patient to floor
[2016-12-10] MEDS ORDERED: Naloxone 0.4 MG/ML INJ IVP PRN (19:08)
[2016-12-10] MEDS ORDERED: Ondansetron 4 MG/2 ML VIAL IVP PRN (19:08)
[2016-12-10] MEDS ORDERED: *HR* HYDROmorphone (PF) 1 MG/ML SYRINGE IVP PRN (19:08)
[2016-12-10] MEDS: 0.9 % Sodium Chloride 1,000 ML IVC SCH (20:14)
[2016-12-10] MEDS: *HR* Morphine 2 MG/ML SYRINGE IVP PRN (23:50)
[2016-12-11] MEDS: *HR* Heparin 5,000 UNIT/ML VIAL SQ SCH ×2 (05:19→16:12)
[2016-12-11 06:51] LABS: Hematocrit 36.6 % (37.5-50.1); Hemoglobin 12.3 g/dL (12.9-16.9); Mean Corpuscular HGB Conc 33.6 g/dL (31.6-35.5); Mean Corpuscular Volume 83.2 fL (83.0-100.0); Platelet Count 377 K/mcL (140-400); Red Cell Distribution Width 13.3 % (11.5-14.5)
[2016-12-11 06:57] LABS: BUN/Creatinine Ratio 18 (6-26); Blood Urea Nitrogen 14 mg/dL (8-26); Calcium 8.1 mg/dL (8.6-10.8); Carbon Dioxide 25 mEq/L (19-29); Chloride 106 mEq/L (98-109); Glucose 117 mg/dL (70-99); Osmolality,Calculated 288 (280-300); Potassium 4.1 mEq/L (3.5-4.5); Sodium 138 mEq/L (136-145); eGFR For African Americans > 60 (> 60); eGFR For Non-African Americans > 60 (> 60)
--- NOTE | 2016-12-11 06:57 | General Surgery Progress Note ---
Addendum entered and electronically signed by Lorena Shell DO 12/11/16 07 :52: WBC resulted, 17.9 Original Note: Date of Encounter: 12/11/16 Time of Encounter: 06:55 - Assessment and Plan (1) Gallstone pancreatitis Current Visit: Yes Status: Acute POD #1 Laparoscopic cholecystectomy and intraoperative cholangiogram with Dr. Rae Multiple gallstones were found in the common bile duct during cholangiogram. Dr. Rae will discuss case with Dr. Rae, will need ERCP. Patient has MRDD, is noncommunicative. His bowel sounds are active, patient withdraws in anticipation of abdominal exam. He is. Tender diffusely to palpation and cries out. Incisions are clean , dry, intact. with no obvious response to pain with abdominal palpation. Plan: -Keep NPO -ERCP with Dr. Mathew, Dr. Rae will call to discuss the case with him -Continue IVF, pain control, antiemetics -I/Os Subjective Patient reports: still having pain Narrative: The patient was seen and examined. He is non-verbal, however when I went to examine his abdomen he retracted in anticipatory pain and became agitated. His abdomen is tender to palpation. Objective Vital Signs - Last 8 Hours Temp Pulse Resp BP Pulse Ox 12/11/16 03:59 97.7 F 68 18 125/77 96 12/10/16 23:19 97.7 F 69 16 153/90 95 Intake and Output 12/10/16 12/10/16 12/11/16 15:59 23:59 07:59 Intake Total 75 / 75 600 / 600 100 / 100 Output Total 450 / 450 20 / 20 200 / 200 Balance -375 / -375 580 / 580 -100 / -100 Intake: IV Fluids 75 / 75 100 / 100 Zosyn 3.375 GM In 75 / 75 100 / 100 Dextrose 5% (Minibag+) 100 ML 100 ML @ 25 mls/hr IVPB Q8H [facility] Rx#: [id number] Oral 0 / 0 600 / 600 Output: Urine 450 / 450 0 / 0 200 / 200 Estimated Blood Loss 20 / 20 Other: Meal NPO # Urine Diapers 0 Weight 88 kg Blood Glucose* 94 110 Patient Weight 12/11/16 23:59 Weight 88 kg - General physical appearance well nourished, moderate distress, moderate pain, chronically ill - ENT atraumatic, normocephalic - Neck Neck exam: trachea midline - Respiratory normal expansion, normal respiratory effort, clear to auscultation - Cardiovascular Cardiovascular exam: Present: RRR, no murmurs/rubs/gallops - Abdomen Abdomen: Present: bowel sounds present, soft, tender Abdominal Tenderness: diffusely - Incision Incision: Present: clean and dry - Labs 12/11/16 05:46 12/11/16 05:46 Diabetes panel 12/10/16 Range/Units 06:45 Sodium 138 (136-145) mEq/L Potassium 3.2 L (3.5-4.5) mEq/L Chloride 106 (98-109) mEq/L Carbon Dioxide 21 (19-29) mEq/L BUN 9 (8-26) mg/dL Creatinine 0.69 L (0.72-1.25) mg/dL Glucose 105 H (70-99) mg/dL Calcium 8.4 L (8.6-10.8) mg/dL AST 18 (5-34) Units/L ALT 65 H (0-55) Units/L Alkaline Phosphatase 216 H (38-126) Units/L Albumin 2.6 L (3.5-5.0) g/dL Calcium panel 12/10/16 Range/Units 06:45 Calcium 8.4 L (8.6-10.8) mg/dL Albumin 2.6 L (3.5-5.0) g/dL Pituitary panel 12/10/16 Range/Units 06:45 Sodium 138 (136-145) mEq/L Potassium 3.2 L (3.5-4.5) mEq/L Chloride 106 (98-109) mEq/L Carbon Dioxide 21 (19-29) mEq/L BUN 9 (8-26) mg/dL Creatinine 0.69 L (0.72-1.25) mg/dL Glucose 105 H (70-99) mg/dL Calcium 8.4 L (8.6-10.8) mg/dL Adrenal panel 12/10/16 Range/Units 06:45 Sodium 138 (136-145) mEq/L Potassium 3.2 L (3.5-4.5) mEq/L Chloride 106 (98-109) mEq/L Carbon Dioxide 21 (19-29) mEq/L BUN 9 (8-26) mg/dL Creatinine 0.69 L (0.72-1.25) mg/dL Glucose 105 H (70-99) mg/dL Calcium 8.4 L (8.6-10.8) mg/dL Total Bilirubin 1.2 (0.2-1.2) mg/dL AST 18 (5-34) Units/L ALT 65 H (0-55) Units/L Alkaline Phosphatase 216 H (38-126) Units/L Albumin 2.6 L (3.5-5.0) g/dL Consult Discharge Plan - Plan Referrals: Yamilet Cramer MD [Primary Care Provider] - - Attending Attestation I examined this patient and my medical decision-making was reviewed with the SECURITY SERVICES MANAGER/PA/Advanced Practice Nurse/Resident Physician. I agree with the documented findings, disposition and treatment plan as described except to the extent set forth below. The patient is seen and evaluated on morning rounds. He has choledocholithiasis and will require ERCP. Consultation is made for gastroenterology. Fuad Rae MD FACS
[2016-12-11 07:32] LABS: Lymphocytes # 2.5 K/mcL (0.6-4.6); Monocytes # 1.1 K/mcL (0.0-1.3); Neutrophils # 13.6 K/mcL (1.6-8.9); Toxic Granulation Present (Not Present)
[2016-12-11] MEDS: Pantoprazole 40 MG VIAL IVP SCH ×2 (08:12→20:37)
[2016-12-11] MEDS: Piperacillin/Tazobactam 3.375 GM in D5% in Water (Mini-Bag+) 100 ML IVPB SCH ×3 (08:12→23:40)
[2016-12-11] MEDS: *HR* Morphine 2 MG/ML SYRINGE IVP PRN ×2 (08:13→16:11)
--- NOTE | 2016-12-11 10:30 | Internal Med Progress Note ---
Date of Encounter: 12/11/16 Time of Encounter: 10:30 - Assessment and plan (1) Cholelithiases Current Visit: Yes Status: Acute Assessment and plan: s/p laparoscopic cholecystectomy For ERCP am Clear liquid diets ordered and NPO from [place] for procedure Qualifiers: Cholelithiasis location: gallbladder Cholecystitis acuity: unspecified acuity Biliary obstruction: without biliary obstruction Qualified Code(s): K80.00 - Calculus of gallbladder with acute cholecystitis without obstruction (2) DVT prophylaxis Current Visit: Yes Status: Acute Assessment and plan: On heparin subcutaneous (3) Gallstone pancreatitis Current Visit: Yes Status: Acute Assessment and plan: Clinically improving. Continue IV hydration and Zosyn For surgery today leukocytosis improving Preliminary blood culture negative - Subjective Interval history: Seen and evaluated at bedside 61 M being managed for gall stone pancreatitis POD 1 laparoscopic cholecystectomy Stable, agitated about what he is watcing on TV, denies abdominal pain Day 4 of Zosyn,leukocytosis 17 GI has been consulted for ERCP - Constitutional Vitals: Temp Pulse Resp BP Pulse Ox 97.5 F L 64 16 125/80 96 12/11/16 06:58 12/11/16 06:58 12/11/16 06:58 12/11/16 06:58 12/11/16 03:59 VSS. Makes incomprehensible sounds Calm, not in any form of distress Alert, unable to assess orientation due to severe underlying MRDD Moves all limbs spontaneously, speech is incomprehensible, No facial paralysis, follows commands Chest clear to auscultation bilaterally Heart sounds S1, S2 only, no m/g/r Abdomen: Soft, not tender, moves with respiration, BS present in all quadrants Extremities well perfused, no pedal edema General appearance: Present: A&O X 0. Absent: answers questions appropriately Internal Medicine: Result - Labs CBC & Chem 7: 12/11/16 05:46 12/11/16 05:46 Labs: Short CBC 12/11/16 Range/Units 05:46 WBC 17.9 H (4.3-11.1) K/mcL Hgb 12.3 L (12.9-16.9) g/dL Hct 36.6 L (37.5-50.1) % Plt Count 377 (140-400) K/mcL Neutrophils # 13.6 H (1.6-8.9) K/mcL BMP 12/11/16 05:46 Sodium 138 Potassium 4.1 Chloride 106 Carbon Dioxide 25 BUN 14 Creatinine 0.76 Glucose 117 H Calcium 8.1 L - ABG Interpretation ABG results: PT/INR, D-dimer PT 14.1 Seconds (9.4-12.1) H 12/10/16 06:45 - Impressions Impressions Cholangiogram,Operative 12/10/16 00:00 IMPRESSION: Multiple distal common bile duct stones. Dr. Rae is aware D/ / Imtiaz Tom MD / Imtiaz Tom MD Interpreting Provider: Imtiaz Tom MD Consult Discharge Plan - Plan Referrals: Yamilet Cramer MD [Primary Care Provider] -
[2016-12-11 10:48] LABS: Alanine Aminotransferase 68 Units/L (0-55); Albumin 2.4 g/dL (3.5-5.0); Albumin/Globulin Ratio 0.7 (1.1-2.2); Alkaline Phosphatase 180 Units/L (38-126); Aspartate Amino Transferase 63 Units/L (5-34); Bilirubin,Direct 0.6 mg/dL (0.0-0.5); Bilirubin,Indirect 0.2 mg/dL (0.0-1.2); Bilirubin,Total 0.8 mg/dL (0.2-1.2); Globulin 3.4 g/dL (2.4-3.5); Total Protein 5.8 g/dL (6.0-8.3)
[2016-12-11] MEDS: 0.9 % Sodium Chloride 1,000 ML IVC SCH ×2 (10:50→23:37)
--- NOTE | 2016-12-11 15:25 | Event Note ---
Date of Encounter: 12/11/16 Time of Encounter: 15:17 Chart reviewed, full consult to follow. Then for ERCP tomorrow. NPO at midnight.
[2016-12-12 03:52] LABS: Basophils # 0.1 K/mcL (0.0-0.2); Basophils % 0.9 %; Eosinophils # 0.5 K/mcL (0.0-0.6); Eosinophils % 4.9 %; Hematocrit 36.5 % (37.5-50.1); Hemoglobin 11.9 g/dL (12.9-16.9); Immature Granulocytes % 3.6 % (0-4); Lymphocytes # 1.6 K/mcL (0.6-4.6); Lymphocytes % 17.4 %; Mean Corpuscular HGB Conc 32.6 g/dL (31.6-35.5); Mean Corpuscular Hemoglobin 27.3 pg (28.0-33.3); Mean Corpuscular Volume 83.7 fL (83.0-100.0); Mean Platelet Volume 9.9 fL (9.4-12.4); Monocytes # 0.6 K/mcL (0.0-1.3); Monocytes % 6.6 %; Neutrophils # 6.2 K/mcL (1.6-8.9); Platelet Count 330 K/mcL (140-400); Red Blood Count 4.36 M/mcL (4.19-5.50); Red Cell Distribution Width 13.4 % (11.5-14.5); Segmented Neutrophils % 66.6 %
[2016-12-12 03:57] LABS: BUN/Creatinine Ratio 14 (6-26); Blood Urea Nitrogen 12 mg/dL (8-26); Calcium 7.9 mg/dL (8.6-10.8); Carbon Dioxide 25 mEq/L (19-29); Chloride 108 mEq/L (98-109); Glucose 105 mg/dL (70-99); Osmolality,Calculated 292 (280-300); Potassium 3.9 mEq/L (3.5-4.5); Sodium 141 mEq/L (136-145); eGFR For African Americans > 60 (> 60); eGFR For Non-African Americans > 60 (> 60)
[2016-12-12] MEDS: *HR* Heparin 5,000 UNIT/ML VIAL SQ SCH ×2 (04:54→16:18)
--- NOTE | 2016-12-12 06:51 | General Surgery Progress Note ---
Date of Encounter: 12/12/16 Time of Encounter: 06:50 - Assessment and Plan (1) Gallstone pancreatitis Current Visit: Yes Status: Acute Postoperative day #2; laparoscopic cholecystectomy and intraoperative cholangiogram with Dr. Rae. Multiple gallstones found in common bile duct and cholangiogram. Patient will have ERCP today with Dr. Mathew. On physical exam, patient is non-Verbal MRDD, active bowel sounds, Positive flatus, abdominal tenderness to palpation Post-surgical tenderness as expected, incisions are clean, dry, intact with no withdrawal response to pain on palpation of abdomen. Patient is pointing to lips today and requesting Chapstick. Afebrile. Vitals stable. Plan: -Nothing by mouth -ERCP with Dr. Mathew Supportive care -IV fluids -IV Pain control -IV Antiemetics -I/O's Subjective Patient reports: voiding w/o difficulty, flatus, no bowel movement, afebrile Narrative: The patient was seen and examined. He is nonverbal, however this morning he was pointing to his lips in circular motion requesting Chapstick. Abdomen is tender to palpation. Objective Vital Signs - Last 8 Hours Temp Pulse Resp BP Pulse Ox 12/12/16 06:44 98.3 F 98 16 142/82 93 Intake and Output 12/11/16 12/11/16 12/12/16 15:59 23:59 07:59 Intake Total 1580 / 1580 1580 / 1580 435 / 435 Output Total 950 / 950 1500 / 1500 325 / 325 Balance 630 / 630 80 / 80 110 / 110 Intake: IV Fluids 1100 / 1100 1100 / 1100 435 / 435 0.9 % Sodium Chloride 1, 1000 / 1000 1000 / 1000 335 / 335 000 ML @ 75 mls/hr IVC . [id number] [facility] Rx#: [id number] Zosyn 3.375 GM In 100 / 100 100 / 100 100 / 100 Dextrose 5% (Minibag+) 100 ML 100 ML @ 25 mls/hr IVPB Q8H [facility] Rx#: [id number] Oral 480 / 480 480 / 480 Output: Urine 950 / 950 1500 / 1500 325 / 325 Other: Meal Lunch Dinner Blood Glucose* 153 104 - General physical appearance well nourished, moderate distress, moderate pain, chronically ill - ENT dry mucosa, atraumatic, normocephalic - Neck Neck exam: trachea midline - Respiratory normal expansion, normal respiratory effort, clear to auscultation - Cardiovascular Cardiovascular exam: Present: RRR, no murmurs/rubs/gallops - Abdomen Abdomen: Present: bowel sounds present, soft, tender (Postsurgical tenderness as expected) - Incision Incision: Present: clean and dry, intact - Integumentary no rash - Neurologic other (MRDD) - Labs 12/12/16 03:08 12/12/16 03:08 Diabetes panel 12/11/16 12/12/16 Range/Units 05:46 03:08 Sodium 138 141 (136-145) mEq/L Potassium 4.1 3.9 (3.5-4.5) mEq/L Chloride 106 108 (98-109) mEq/L Carbon Dioxide 25 25 (19-29) mEq/L BUN 14 12 (8-26) mg/dL Creatinine 0.76 0.84 (0.72-1.25) mg/dL Glucose 117 H 105 H (70-99) mg/dL Calcium 8.1 L 7.9 L (8.6-10.8) mg/dL AST 63 H (5-34) Units/L ALT 68 H (0-55) Units/L Alkaline Phosphatase 180 H (38-126) Units/L Albumin 2.4 L (3.5-5.0) g/dL Calcium panel 12/11/16 12/12/16 Range/Units 05:46 03:08 Calcium 8.1 L 7.9 L (8.6-10.8) mg/dL Albumin 2.4 L (3.5-5.0) g/dL Pituitary panel 12/11/16 12/12/16 Range/Units 05:46 03:08 Sodium 138 141 (136-145) mEq/L Potassium 4.1 3.9 (3.5-4.5) mEq/L Chloride 106 108 (98-109) mEq/L Carbon Dioxide 25 25 (19-29) mEq/L BUN 14 12 (8-26) mg/dL Creatinine 0.76 0.84 (0.72-1.25) mg/dL Glucose 117 H 105 H (70-99) mg/dL Calcium 8.1 L 7.9 L (8.6-10.8) mg/dL Adrenal panel 12/11/16 12/12/16 Range/Units 05:46 03:08 Sodium 138 141 (136-145) mEq/L Potassium 4.1 3.9 (3.5-4.5) mEq/L Chloride 106 108 (98-109) mEq/L Carbon Dioxide 25 25 (19-29) mEq/L BUN 14 12 (8-26) mg/dL Creatinine 0.76 0.84 (0.72-1.25) mg/dL Glucose 117 H 105 H (70-99) mg/dL Calcium 8.1 L 7.9 L (8.6-10.8) mg/dL Total Bilirubin 0.8 (0.2-1.2) mg/dL AST 63 H (5-34) Units/L ALT 68 H (0-55) Units/L Alkaline Phosphatase 180 H (38-126) Units/L Albumin 2.4 L (3.5-5.0) g/dL Consult Discharge Plan - Plan Referrals: Yamilet Cramer MD [Primary Care Provider] - - Attending Attestation I examined this patient and my medical decision-making was reviewed with the REGIONAL SALES LEADER/PA/Advanced Practice Nurse/Resident Physician. I agree with the documented findings, disposition and treatment plan as described except to the extent set forth below. The patient is seen and evaluated. He has choledocholithiasis and will require ERCP later today. Fuad Rae MD FACS
[2016-12-12] MEDS: Piperacillin/Tazobactam 3.375 GM in D5% in Water (Mini-Bag+) 100 ML IVPB SCH ×3 (08:58→23:28)
[2016-12-12] MEDS: Pantoprazole 40 MG VIAL IVP SCH ×2 (08:58→20:10)
--- NOTE | 2016-12-12 10:09 | Anesthesia Evaluation PreOp ---
Date of Encounter: 12/12/16 Time of Encounter: 10:07 - Past History Planned Operation: ERCP Cardiac History: HTN Pulmonary History: Denies Any Significant HX CAPACITOR INSPECTOR History: Other (MRDD, anxiety) Other Medical History: GERD (large hiatal hernia) Anesthesia History: No Prior Anesthetic Complications, Past Anesthesia ( cholecystectomy) Alcohol Use: none Drug use: none Medications and Allergies Loratadine [Claritin] 10 mg PO DAILY PRN 12/07/16 [History] Omeprazole 20 mg PO Q48H 12/07/16 [History] Paroxetine HCl [Paxil] 30 mg PO DAILY 12/07/16 [History] Quetiapine Fumarate [Seroquel] 300 mg PO HS 12/07/16 [History] Acetaminophen [Tylenol] 650 mg PO Q4H PRN 12/08/16 [History] Calcium Carbonate/Vitamin D3 [Oyster Shell 250 mg + Vit D Tb] 1 each PO BID [History] Fluticasone Propionate Nasal [Flonase] 2 spr NS DAILY PRN 12/08/16 [History] Ibuprofen [Motrin] 400 mg PO Q4HR PRN 12/08/16 [History] Loperamide HCl [Anti-Diarrheal] 2 mg PO Q4H PRN MDD 4 TABLETS 12/08/16 [History] MOM Conc [Milk of Magnesia Conc] 30 ml PO AD PRN 12/08/16 [History] Melatonin 10 mg PO HS 12/08/16 [History] Saline Nasal [place] [[place] Nasal [place]] 2 spray NS DAILY 12/08/16 [History] Allergies No Known Allergies Allergy (Verified 12/08/16 13:15) - Meds/Allergy Pre-op Review Medications Reviewed: Yes Allergies Reviewed: Yes Beta Blockers on Current Med List: No Anesthesia Results - Labs 12/12/16 03:08 12/12/16 03:08 - Imaging EKG: report reviewed, image reviewed (SR; borderline criteria for LVH) Anesthesia Exam Last Vital Signs Temp 98.4 F 12/12/16 09:59 Pulse 98 12/12/16 06:44 Resp 16 12/12/16 09:59 BP 142/82 12/12/16 06:44 Pulse Ox 93 12/12/16 06:44 Weight: 88 kg NPO (# of Hours): >>8 hrs - HEENT Pupil (Motor): Pupils equal, EOMI Teeth: Poor dentition Oral Opening: Greater than 3 - CAPACITOR INSPECTOR LOC: Disoriented, Uncooperative - Cardiac Rhythm: Regular Murmur: None - Pulmonary Breath Sounds: bilateral Clear Respiratory Effort: Symmetrical Anesthesia Assess/Plan ASA Score: 3 Modified Donnell Scale for Level of Consciousness: Cooperative, oriented, and tranquil Anesthetic Plan: General Monitoring Plan: Standard Monitors Recovery Plan: PACU
[2016-12-12] MEDS ORDERED: Indomethacin 50 MG SUPP.RECT RC ONE (10:46)
--- NOTE | 2016-12-12 10:53 | Internal Med Progress Note ---
Date of Encounter: 12/12/16 Time of Encounter: 10:53 - Assessment and plan (1) Cholelithiases Current Visit: Yes Status: Acute Assessment and plan: s/p laparoscopic cholecystectomy POD 2 s/p ERCP this a.m Clear liquid diets and advance as tolerated Qualifiers: Cholelithiasis location: gallbladder Cholecystitis acuity: unspecified acuity Biliary obstruction: without biliary obstruction Qualified Code(s): K80.00 - Calculus of gallbladder with acute cholecystitis without obstruction (2) DVT prophylaxis Current Visit: Yes Status: Acute Assessment and plan: On heparin subcutaneous (3) Gallstone pancreatitis Current Visit: Yes Status: Acute Assessment and plan: Clinically improving. leukocytosis resolved Clear liquid diet and advance as tolerated - Subjective Interval history: Seen and evaluated at bedside 61 M being managed for gall stone pancreatitis POD 2 laparoscopic cholecystectomy Stable, s/p ERCP, no new complains Day 5 of Zosyn Leukocytosis has resolved Chem WNL Surgery and GI input appreciated - Constitutional Vitals: Temp Pulse Resp BP Pulse Ox 100.9 F H 87 28 109/75 95 12/12/16 10:43 12/12/16 10:43 12/12/16 10:43 12/12/16 10:43 12/12/16 10:43 General appearance: Present: A&O X 0. Absent: answers questions appropriately Exam: VSS. Makes incomprehensible sounds Calm, not in any form of distress Alert, unable to assess orientation due to severe underlying MRDD Moves all limbs spontaneously, speech is incomprehensible, No facial paralysis, follows commands Chest clear to auscultation bilaterally Heart sounds S1, S2 only, no m/g/r Abdomen: Soft, not tender, moves with respiration, BS present in all quadrants Extremities well perfused, no pedal edema Internal Medicine: Result - Labs CBC & Chem 7: 12/12/16 03:08 12/12/16 03:08 Labs: Short CBC 12/12/16 Range/Units 03:08 WBC 9.4 (4.3-11.1) K/mcL Hgb 11.9 L (12.9-16.9) g/dL Hct 36.5 L (37.5-50.1) % Plt Count 330 (140-400) K/mcL Neutrophils # 6.2 (1.6-8.9) K/mcL BMP 12/12/16 03:08 Sodium 141 Potassium 3.9 Chloride 108 Carbon Dioxide 25 BUN 12 Creatinine 0.84 Glucose 105 H Calcium 7.9 L Liver Function 12/11/16 Range/Units 05:46 Total Bilirubin 0.8 (0.2-1.2) mg/dL Direct Bilirubin 0.6 H (0.0-0.5) mg/dL AST 63 H (5-34) Units/L ALT 68 H (0-55) Units/L Alkaline Phosphatase 180 H (38-126) Units/L Albumin 2.4 L (3.5-5.0) g/dL - ABG Interpretation ABG results: PT/INR, D-dimer PT 14.1 Seconds (9.4-12.1) H 12/10/16 06:45 Consult Discharge Plan - Plan Referrals: Yamilet Cramer MD [Primary Care Provider] -
--- NOTE | 2016-12-12 11:32 | Anesthesia Evaluation Post Op ---
Date of Encounter: 12/12/16 Time of Encounter: 11:15 - Vital Signs Vital Signs: Vital Signs/O2 Sat, Most Current Temp Pulse Resp BP Pulse Ox 99.3 F 83 22 115/80 97 12/12/16 11:13 12/12/16 11:13 12/12/16 11:13 12/12/16 11:13 12/12/16 11:13 - Lungs Lungs: Clear Ascult./Percussion - Airway Airway: Non-obstructed - Cardiovascular Regular Rate - Mental Status Mental Status: Confused, Uncooperative, Baseline Status - Pain Pain Scale used: Unable to assess - Nausea Vomiting Nausea Vomiting: Not Present - Hydration Hydration: NPO, Has not voided - Discharge PostOp Status: Transfer Patient to floor
--- NOTE | 2016-12-12 11:40 | Gastroenterology Consult Note ---
<Aleksandr Gordon - Last Filed: 12/12/16 11:37> Date of Encounter: 12/12/16 Time of Encounter: 09:20 - Time Spent With Patient Total time spent is greater than 50% in coordination of care (as documented) at patient's floor/unit and/or counseling patient: GI History of Present Illness - Data of Consult Patient: new to practice Consult date: 12/12/16 Requesting Physician: Giovanni Miguel MD - Consult Narrative Reason for consult: Choledocholithiasis History of present illness: Mr. Bullard is a 61 year old male with PMHx of GERD, MRDD who was transferred from [facility] emergency department, where he was diagnosed with acute pancreatitis and cholelithiasis to [place] for further evaluation and care. CT A/P showed acute uncomplicated pancreatitis without free air or fluid collection. Mild reactive duodenitis and large hiatal hernia without bowel obstruction. Multiple gallstones within the gallbladder are noted without wall thickening or cherie-cholecystic inflammatory changes. Lap ina completed by Dr. Rae and IOC showed multiple gallstones in distal CBD which is dilated. We were consulted for ERCP. Procedures: None NSAIDs: ibuprofen Anticoagulation: None A/P 1. Gallstone pancreatitis Patient is s/p cholecystectomy and IOC showed multiple gallstones in distal CBD. Plan for ERCP today. Keep patient NPO. Continue IV fluids, antiemetics, and pain control. Past Med Surg Social Fam HX - Past Medical History Medical history: GERD, hypertension, other Psychiatric history: anxiety, depression - Past Surgical History Surgical History: no surgical history - Social History Smoking Status: Never smoker Smokeless Tobacco Status: No Alcohol use: none Drug use: none - Family History Mother History Unknown: Yes Father History Unknown: Yes ROS unobtainable: due to mental status - Constitutional Vitals: Temp Pulse Resp BP Pulse Ox 99.3 F 83 22 115/80 97 12/12/16 11:13 12/12/16 11:13 12/12/16 11:13 12/12/16 11:13 12/12/16 11:13 General appearance: Present: cooperative, A&O X 3, no acute distress, answers questions appropriately - Head Head exam: Present: atraumatic, normocephalic - Eye Eye exam: Present: normal appearance, sclera anicteric - ENT ENT exam: Present: mucous membranes dry - Neck Neck exam general surgery: Present: normal inspection, trachea midline - Respiratory Respiratory exam: Present: decreased breath sounds, CTAB - Cardiovascular Cardiovascular exam: Present: RRR, +S1, +S2 - GI/Abdominal GI/Abdominal exam: Present: soft, no peritoneal signs. Absent: distended, firm , guarding Additional comments: Laparoscopic incisions noted from cholecystectomy. - Rectal Rectal exam: Present: deferred - Extremities Exam Extremities exam: Present: warm - Neurological Exam Additional comments: MRDD - Psychiatric Psychiatric exam: Present: normal affect, normal mood - Skin Skin exam: Present: dry, intact, normal color, warm Results - Labs CBC & Chem 7: 12/12/16 03:08 12/12/16 03:08 Labs: Last Result Calcium 7.9 mg/dL (8.6-10.8) L 12/12/16 03:08 Triglycerides 61 mg/dL (< 150) 12/08/16 02:02 Entire Visit Hgb 11.9 g/dL (12.9-16.9) L 12/12/16 03:08 Hct 36.5 % (37.5-50.1) L 12/12/16 03:08 PT 14.1 Seconds (9.4-12.1) H 12/10/16 06:45 Total Bilirubin 0.8 mg/dL (0.2-1.2) 12/11/16 05:46 AST 63 Units/L (5-34) H 12/11/16 05:46 ALT 68 Units/L (0-55) H 12/11/16 05:46 Amylase 33 Units/L (25-125) 12/10/16 06:45 Lipase 88 Units/L (8-78) H 12/10/16 06:45 - ABG ABG results: PT/INR, D-dimer PT 14.1 Seconds (9.4-12.1) H 12/10/16 06:45 Consult Discharge Plan - Plan Additional Instructions: Follow-up appointments: If there is not an appointment listed below, please call your physician and schedule a follow-up appointment. If you have congestive heart failure and your symptoms return, make an appointment with your physician. Medication List: Carry an up to date list of medications you are taking at all time. We have given you an updated medication list including any new medications that you have been prescribed. Please provide that list to your primary provider Symptoms: If your condition changes or you experience any of the following symptoms, notify your physician immediately: Unusual or worsening pain, fever, persistent nausea and vomiting, bleeding, increase in swelling (especially in your legs), sudden weight gain, extreme dizziness, chest pain, increased drainage or redness from a wound or incision. Go to the emergency department if you experience a problem with breathing. Weights: If you have a history of swelling or shortness of breath, weigh yourself daily and notify your physician if you have a weight gain of two or more pounds in one day or 5 or more pounds in a week. If you experience any of the warning signs for stroke: Sudden numbness or weakness of the face, arm or leg; especially on one side of the body, sudden confusion, trouble speaking or understanding, sudden trouble seeing in one or both eyes, sudden trouble walking, dizziness, loss of balance or coordination, sudden sever headache with no cause; Call 911 or go to the emergency room. Stroke is a medical emergency. Some risk factors for stroke: Age, cigarette smoking, diabetes, excessive alcohol consumption, family history , high blood pressure, overweight, physical inactivity, prior stroke, heart attack, diagnosis of carotid artery stenosis or other artery disease. If you smoke, STOP: Smoking or tobacco use significantly increases your risk of heart and lung disease. Your chance of disease greatly increases if you continue to smoke. For more information, call the [place] tobacco quit line for smoking cessation QUIT-NOW ( )Follow-up appointments: If there is not an appointment listed below, please call your physician and schedule a follow-up appointment. If you have congestive heart failure and your symptoms return, make an appointment with your physician. Medication List: Carry an up to date list of medications you are taking at all time. We have given you an updated medication list including any new medications that you have been prescribed. Please provide that list to your primary provider Symptoms: If your condition changes or you experience any of the following symptoms, notify your physician immediately: Unusual or worsening pain, fever, persistent nausea and vomiting, bleeding, increase in swelling (especially in your legs), sudden weight gain, extreme dizziness, chest pain, increased drainage or redness from a wound or incision. Go to the emergency department if you experience a problem with breathing. Weights: If you have a history of swelling or shortness of breath, weigh yourself daily and notify your physician if you have a weight gain of two or more pounds in one day or 5 or more pounds in a week. If you experience any of the warning signs for stroke: Sudden numbness or weakness of the face, arm or leg; especially on one side of the body, sudden confusion, trouble speaking or understanding, sudden trouble seeing in one or both eyes, sudden trouble walking, dizziness, loss of balance or coordination, sudden sever headache with no cause; Call 911 or go to the emergency room. Stroke is a medical emergency. Some risk factors for stroke: Age, cigarette smoking, diabetes, excessive alcohol consumption, family history , high blood pressure, overweight, physical inactivity, prior stroke, heart attack, diagnosis of carotid artery stenosis or other artery disease. If you smoke, STOP: Smoking or tobacco use significantly increases your risk of heart and lung disease. Your chance of disease greatly increases if you continue to smoke. For more information, call the [place] tobacco quit line for smoking cessation 8-891 QUIT-NOW ( ) Referrals: Fuad Rae MD [Partnered Physician] - (Web request sent follow up on Lap Ina. Per RN) Nichole Mathew MD [Partnered Physician] - (Web request sent follow up on ERCP.) Prescriptions: Amoxicillin/Clavulanate [Augmentin] 875 mg PO BIDWM #10 tablet <Nichole Mathew - Last Filed: 12/15/16 17:56> Date of Encounter: 12/12/16 Time of Encounter: 10:00 - Time Spent With Patient Total time spent is greater than 50% in coordination of care (as documented) at patient's floor/unit and/or counseling patient: GI History of Present Illness - Data of Consult Requesting Physician: Giovanni Miguel MD - Consult Narrative History of present illness: Mr. Bullard is a 61 year old male - Constitutional Vitals: Temp Pulse Resp BP Pulse Ox 97.7 F 78 16 130/78 95 12/13/16 11:33 12/13/16 11:33 12/13/16 11:33 12/13/16 11:33 12/13/16 11:33 Results - Labs CBC & Chem 7: 12/12/16 03:08 12/12/16 03:08 Labs: Last Result Calcium 7.9 mg/dL (8.6-10.8) L 12/12/16 03:08 Triglycerides 61 mg/dL (< 150) 12/08/16 02:02 Entire Visit Hgb 11.9 g/dL (12.9-16.9) L 12/12/16 03:08 Hct 36.5 % (37.5-50.1) L 12/12/16 03:08 PT 14.1 Seconds (9.4-12.1) H 12/10/16 06:45 Total Bilirubin 0.8 mg/dL (0.2-1.2) 12/11/16 05:46 AST 63 Units/L (5-34) H 12/11/16 05:46 ALT 68 Units/L (0-55) H 12/11/16 05:46 Amylase 33 Units/L (25-125) 12/10/16 06:45 Lipase 88 Units/L (8-78) H 12/10/16 06:45 - ABG ABG results: PT/INR, D-dimer PT 14.1 Seconds (9.4-12.1) H 12/10/16 06:45 - Attending Attestation I examined this patient and my medical decision-making was reviewed with the SETTLEMENT CLERK/PA/Advanced Practice Nurse/Resident Physician. I agree with the documented findings, disposition and treatment plan as described except to the extent set forth below.
[2016-12-12] MEDS ORDERED: Lidocaine -MPF 2% 5 ML VIAL INFILT ONE (13:45)
[2016-12-12] MEDS: *HR* Morphine 2 MG/ML SYRINGE IVP PRN ×2 (16:21→22:40)
[2016-12-13] MEDS: *HR* Morphine 2 MG/ML SYRINGE IVP PRN (04:07)
[2016-12-13] MEDS: *HR* Heparin 5,000 UNIT/ML VIAL SQ SCH (05:29)
[2016-12-13] MEDS: Pantoprazole 40 MG VIAL IVP SCH (07:55)
[2016-12-13] MEDS: Piperacillin/Tazobactam 3.375 GM in D5% in Water (Mini-Bag+) 100 ML IVPB SCH (07:56)
--- NOTE | 2016-12-13 09:54 | General Surgery Progress Note ---
Date of Encounter: 12/15/16 Time of Encounter: 08:15 - Assessment and Plan (1) Gallstone pancreatitis Status: Resolved Postoperative day #3; laparoscopic cholecystectomy and intraoperative cholangiogram with Dr. Rae. Multiple gallstones found in common bile duct and cholangiogram. Patient will have ERCP today Day 1 Status post ERCP with Choledocholithiasis identified and complete removal accomplished by biliary sphincterotomy and balloon extraction.Dr. Mathew. On physical exam, patient is MRDD however is verbally communicating yes and thank you today, active bowel sounds, Positive flatus, denies abdominal tenderness to palpation, incisions are clean, dry, intact with no withdrawal response to pain on palpation of abdomen. Afebrile. Vitals stable. Patient is clear from a surgical standpoint. Discharge planning per hospital team. Plan: Discahrge planning per medical team. Advance diet to regular/soft Pain control Antiemetics Subjective Patient reports: no new complaints, feels better, pain is less, tolerating liquids well, voiding w/o difficulty, flatus, afebrile Narrative: The patient was seen and examined. He is communicating verbally today stating thank you after helping him with the TV remote. Patient is up in bed and very active today. He denies pain. He has had flatness, bowel movement and reports that he is hungry. Will advance to regular diet and if patient tolerates continue discharge planning per medical team. Objective Vital Signs - Last 8 Hours Temp Pulse Resp BP Pulse Ox 12/13/16 08:14 97.7 F 73 16 114/78 95 12/13/16 04:08 97.6 F 71 14 110/77 94 Intake and Output 12/12/16 12/13/16 12/13/16 23:59 07:59 15:59 Intake Total 520 / 520 100 / 100 720 / 720 Output Total 1500 / 1500 1650 / 1650 250 / 250 Balance -980 / -980 -1550 / -1550 470 / 470 Intake: IV Fluids 100 / 100 100 / 100 Zosyn 3.375 GM In 100 / 100 100 / 100 Dextrose 5% (Minibag+) 100 ML 100 ML @ 25 mls/hr IVPB Q8H LAM Rx#: [id number] Oral 420 / 420 0 / 0 720 / 720 Output: Urine 1500 / 1500 1650 / 1650 250 / 250 Other: Meal Breakfast # Urine Diapers 1 Weight 87.9 kg Patient Weight 12/13/16 23:59 Weight 87.9 kg - General physical appearance well nourished, no distress, no pain - Eyes PERRL, normal ocular movement - ENT dry mucosa, atraumatic - Neck Neck exam: trachea midline, no venous distension - Respiratory normal expansion, normal respiratory effort, clear to auscultation - Cardiovascular Cardiovascular exam: Present: RRR, no murmurs/rubs/gallops. Absent: JVD - Abdomen Abdomen: Present: bowel sounds present, soft, non tender. Absent: masses, guarding, rebound, rigid - Incision Incision: Present: clean and dry, intact - Integumentary no rash - Neurologic other (MRDD) - Labs 12/12/16 03:08 12/12/16 03:08 Consult Discharge Plan - Plan Additional Instructions: Follow-up appointments: If there is not an appointment listed below, please call your physician and schedule a follow-up appointment. If you have congestive heart failure and your symptoms return, make an appointment with your physician. Medication List: Carry an up to date list of medications you are taking at all time. We have given you an updated medication list including any new medications that you have been prescribed. Please provide that list to your primary provider Symptoms: If your condition changes or you experience any of the following symptoms, notify your physician immediately: Unusual or worsening pain, fever, persistent nausea and vomiting, bleeding, increase in swelling (especially in your legs), sudden weight gain, extreme dizziness, chest pain, increased drainage or redness from a wound or incision. Go to the emergency department if you experience a problem with breathing. Weights: If you have a history of swelling or shortness of breath, weigh yourself daily and notify your physician if you have a weight gain of two or more pounds in one day or 5 or more pounds in a week. If you experience any of the warning signs for stroke: Sudden numbness or weakness of the face, arm or leg; especially on one side of the body, sudden confusion, trouble speaking or understanding, sudden trouble seeing in one or both eyes, sudden trouble walking, dizziness, loss of balance or coordination, sudden sever headache with no cause; Call 911 or go to the emergency room. Stroke is a medical emergency. Some risk factors for stroke: Age, cigarette smoking, diabetes, excessive alcohol consumption, family history , high blood pressure, overweight, physical inactivity, prior stroke, heart attack, diagnosis of carotid artery stenosis or other artery disease. If you smoke, STOP: Smoking or tobacco use significantly increases your risk of heart and lung disease. Your chance of disease greatly increases if you continue to smoke. For more information, call the [place] [employer] line for smoking cessation ( )Follow-up appointments: If there is not an appointment listed below, please call your physician and schedule a follow-up appointment. If you have congestive heart failure and your symptoms return, make an appointment with your physician. Medication List: Carry an up to date list of medications you are taking at all time. We have given you an updated medication list including any new medications that you have been prescribed. Please provide that list to your primary provider Symptoms: If your condition changes or you experience any of the following symptoms, notify your physician immediately: Unusual or worsening pain, fever, persistent nausea and vomiting, bleeding, increase in swelling (especially in your legs), sudden weight gain, extreme dizziness, chest pain, increased drainage or redness from a wound or incision. Go to the emergency department if you experience a problem with breathing. Weights: If you have a history of swelling or shortness of breath, weigh yourself daily and notify your physician if you have a weight gain of two or more pounds in one day or 5 or more pounds in a week. If you experience any of the warning signs for stroke: Sudden numbness or weakness of the face, arm or leg; especially on one side of the body, sudden confusion, trouble speaking or understanding, sudden trouble seeing in one or both eyes, sudden trouble walking, dizziness, loss of balance or coordination, sudden sever headache with no cause; Call 911 or go to the emergency room. Stroke is a medical emergency. Some risk factors for stroke: Age, cigarette smoking, diabetes, excessive alcohol consumption, family history , high blood pressure, overweight, physical inactivity, prior stroke, heart attack, diagnosis of carotid artery stenosis or other artery disease. If you smoke, STOP: Smoking or tobacco use significantly increases your risk of heart and lung disease. Your chance of disease greatly increases if you continue to smoke. For more information, call the [place] [employer] quit line for smoking cessation 1-800- QUIT-NOW ( ) Referrals: Fuad Rae MD [Partnered Physician] - (Web request sent follow up on Lap Ina. Per RN) Nichole Mathew MD [Partnered Physician] - (Web request sent follow up on ERCP.) Prescriptions: Amoxicillin/Clavulanate [Augmentin] 875 mg PO BIDWM #10 tablet - Attending Attestation I examined this patient and my medical decision-making was reviewed with the SUPER[employer]/PA/Advanced Practice Nurse/Resident Physician. I agree with the documented findings, disposition and treatment plan as described except to the extent set forth below. Review the above assessment and evaluation and agree with the overall plan. We will sign off.
--- NOTE | 2016-12-13 10:35 | Discharge Summary ---
Date of Encounter: 12/13/16 Time of Encounter: 10:30 - Discharge Diagnosis (1) Cholelithiases Priority: Primary Status: Acute Qualifiers: Cholelithiasis location: gallbladder Cholecystitis acuity: unspecified acuity Biliary obstruction: without biliary obstruction Qualified Code(s): K80.00 - Calculus of gallbladder with acute cholecystitis without obstruction (2) DVT prophylaxis Priority: Primary Status: Resolved (3) Gallstone pancreatitis Priority: Primary Status: Resolved - Discharge Medications Prescriptions: Amoxicillin/Clavulanate [Augmentin] 875 mg PO BIDWM #10 tablet Home Medications: Loratadine [Claritin] 10 mg PO DAILY PRN 12/07/16 [History] Omeprazole 20 mg PO Q48H 12/07/16 [History] Paroxetine HCl [Paxil] 30 mg PO DAILY 12/07/16 [History] Quetiapine Fumarate [Seroquel] 300 mg PO HS 12/07/16 [History] Acetaminophen [Tylenol] 650 mg PO Q4H PRN 12/08/16 [History] Calcium Carbonate/Vitamin D3 [Oyster Shell 250 mg + Vit D Tb] 1 each PO BID [History] Fluticasone Propionate Nasal [Flonase] 2 spr NS DAILY PRN 12/08/16 [History] Ibuprofen [Motrin] 400 mg PO Q4HR PRN 12/08/16 [History] Loperamide HCl [Anti-Diarrheal] 2 mg PO Q4H PRN MDD 4 TABLETS 12/08/16 [History] MOM Conc [MILK OF MAGNESIA conc] 30 ml PO AD PRN 12/08/16 [History] Melatonin 10 mg PO HS 12/08/16 [History] Saline Nasal [place] [[place] Nasal [place]] 2 spray NS DAILY 12/08/16 [History] Amoxicillin/Clavulanate [Augmentin] 875 mg PO BIDWM #10 tablet 12/13/16 [Rx] Allergies/Adverse Reactions: Allergies No Known Allergies Allergy (Verified 12/08/16 13:15) Date of admission: 12/09/16 16:46 Primary care physician: Yamilet Cramer Consults: 12/08/16 01:21 Consult to Palliative Medicine Physician [CONS] Routine Reason for SW Consult[place] 12/08/16 14:46 Consult to Surgery [CONS] Routine Consulting Provider: Fuad Rae Reason for Consult: pancreatitis and cholelithiasis Call Completed: Yes 12/10/16 21:06 Consult to Gastroenterology [CONS] Routine Consulting Provider: Gastroenterology Clarence Reason for Consult: ERCP, Gall stnones pancreatitis, CBD stones, per surgery , s/p laparoscopic cholecystectomy Call Completed: No Discharging clinician: Giovanni Miguel Anticipated date of discharge: 12/13/16 - Patient Status Disposition: Home, Self-Care Condition: Fair Functional capacity at discharge: independent ambulation Overall status at discharge: patient is progressing back to baseline - Discharge Instructions Follow Up With: Yamilet Cramer MD [Primary Care Provider] - - Diet and Activity Activity: resume usual activities as tolerated Diet: regular diet Interval History: See below Hospital course: Mr. Bullard is a 61 year old male with MRDD, resident of assisted living facillity he is mostly nonverbal he was admitted [facility] from [facility] for management of pancreatitis. Work up on admission here revealed leukocytosis with left shift, normal chem, normal INR, transaminitis and elevated ALP, Lipsae of 782. Gall bladder USS done here showed gall stones and CBD stones Patient was admitted and placed on bowel rest, IVF , IV Zosyn, pain control Surgery eval was requested. Patient is POD 3 of laparoscopic cholecystectomy he also had ERCP done 12/12, well tolerated he is seen at bedside, in no form of distress, no abdominal pain complains or tenderness reproducible His LFTs have significantly improved and his leukocytosis has resolved He is stable for discharge back to his facility with oral antibiotics - Time Spent with Patient Total time spent providing and/or coordinating discharge services: Less than 30 minutes - Constitutional Vitals: Temp Pulse Resp BP Pulse Ox 97.7 F 73 16 114/78 95 12/13/16 08:14 12/13/16 08:14 12/13/16 08:14 12/13/16 08:14 12/13/16 08:14 General appearance: Present: A&O X 0. Absent: answers questions appropriately Exam: VSS. Makes incomprehensible sounds Calm, not in any form of distress Alert, unable to assess orientation due to severe underlying MRDD Moves all limbs spontaneously, speech is incomprehensible, No facial paralysis, follows commands Chest clear to auscultation bilaterally Heart sounds S1, S2 only, no m/g/r Abdomen: Soft, not tender, moves with respiration, BS present in all quadrants Extremities well perfused, no pedal edema
[2016-12-13 11:34] VITALS: BP 130/78
[2016-12-13] MEDS ORDERED: *HR* Propofol 200 MG/20 ML VIAL IVP ONE (13:45)
[2016-12-13] MEDS ORDERED: Ondansetron 4 MG/2 ML VIAL IVP ONE (13:45)
[2016-12-13] MEDS ORDERED: *HR* Succinylcholine 200 MG/10 ML VIAL IVP ONE (13:45)
== END 2016-12-13 13:46 | disposition home or self-care (01) | DRG 417 ==
LOC: 3ANU → SUATTDRO 12-08 00:04
PROVIDERS: ADMIT Internal Medicine; ATTEND Internal Medicine